=== PATIENT | male | born 1975 | race Caucasian/White ===

== ENCOUNTER 2024-03-01 10:00 | Emergency (ER) | payer BC ==
[~2024-03-01] VITALS: Ht 182.9 cm; Wt 78.5 kg
[2024-03-01] MEDS: INDOMETHACIN 25 MG CAPSULE PO ONE (10:24)
[2024-03-01] MEDS ORDERED: INDOMETHACIN 25 MG CAPSULE ONE (10:24)
[2024-03-01 11:24] LABS: BASOPHILS % (AUTO) 0.1 % (0.0-2.0); EOSINOPHILS % (AUTO) 0.1 % (0.0-6.0); HEMATOCRIT 42 % (39-51); HEMOGLOBIN 14.3 g/dL (13.5-17.5); LYMPHOCYTES % (AUTO) 29.6 % (20.0-44.0); MEAN CORPUSCULAR HEMOGLOBIN 30 PG (26.0-33.0); MEAN CORPUSCULAR HGB CONC 34 g/dl (31.0-36.0); MEAN CORPUSCULAR VOLUME 90 fL (80-96); MONOCYTES # (AUTO) 0.6 K/uL (0.1-1.30); MONOCYTES % (AUTO) 8.6 % (2.0-12.0); NEUTROPHILS # (AUTO) 4.1 K/uL (1.8-8.9); NEUTROPHILS % (AUTO) 61.6 % (43.0-81.0); PLATELET COUNT (AUTO) 299 K/uL (150-450); WHITE BLOOD COUNT (AUTO) 6.7 K/uL (4.3-11.0)
[2024-03-01 11:35] LABS: ERYTHROCYTE SEDIMENTATION RATE 22 MM/HR (0-15)
[2024-03-01 13:24] LABS: URIC ACID 8.6 mg/dL (2.6-7.2)
[2024-03-01 13:27] LABS: C-REACTIVE PROTEIN 1.6 mg/dL (0.0-0.30)
[2024-03-01 14:02] LABS: CALCIUM, SERUM 8.9 mg/dL (8.5-10.1); POTASSIUM 4.3 mmol/L (3.5-5.1)
[2024-03-01 14:08] LABS: CREATININE 1.1 mg/dL (0.6-1.3)
[2024-03-01] MEDS ORDERED: INDO50CA92 PO (14:40)
[2024-03-01 14:55] VITALS: BP 128/87; TEMP 98.2; O2SAT 95
== END 2024-03-01 14:56 | disposition home or self-care (01) ==
LOC: ER 10:00
DX: M10.9 Gout, unspecified (principal)
CPT/HCPCS: 36415; 80048-TC; 84550-TC; 85025-TC; 85652-TC; 86140-TC; 93971-TC